=== PATIENT | female | born 1980 | race Caucasian/White ===

== ENCOUNTER 2017-03-21 14:56 | Emergency (ER) | payer SELFPAY ==
--- NOTE | 2017-03-29 17:49 | ER ---
ADMIT: 03/21/2017 RM/LOC: ER [facility] MR#: [id number] [address] [facility] [id number] BILL CARRILLO [address] [place] [address] [id number] Emergency Room Report SEX: F AGE: 36 : 1980 DATE: 03/21/2017 ADDENDUM: A 36-year-old white female coming in with, she said a lump in her lower abdomen. She has a right direct inguinal hernia. This is reduced easily. She can reduce it easily. We discharged her home. Follow up surgeon. Try a truss belt until then. Really limited lifting at this time. CONDITION ON DISCHARGE: Good. Alvaro Sheridan MD/ elen JOB #: [id number] CC: Alvaro Sheridan MD, Attending Physician
== END 2017-03-21 16:05 | disposition home or self-care (01) ==
LOC: ER 14:56
DX: K40.90 Unilateral inguinal hernia, without obstruction or gangrene, not specified as recurrent (principal); F17.210 Nicotine dependence, cigarettes, uncomplicated; Z88.6 Allergy status to analgesic agent